=== PATIENT | male | born 1960 | race Caucasian/White ===

== ENCOUNTER → 2016-11-08 | Outpatient (CLI) | payer BC ==
[~2016-11-08] MED LIST: AMLO10TA2 PO; ATOR1TAB21 PO; LOSA100T PO
[2016-11-08 14:28] LABS: ALBUMIN 4.3 GM/DL (3.2-5.2); ALBUMIN/GLOBULIN RATIO 1.26 (1.00-1.93); ALKALINE PHOSPHATASE 79 U/L (45-117); ALT/SGPT 35 U/L (12-78); ANION GAP 7 MEQ/L (8-16); AST/SGOT 22 U/L (15-37); BILIRUBIN,TOTAL 0.5 MG/DL (0.2-1.0); BLOOD UREA NITROGEN 18 MG/DL (7-18); CALCIUM LEVEL 8.8 MG/DL (8.5-10.1); CARBON DIOXIDE LEVEL 31 MEQ/L (21-32); CHLORIDE LEVEL 100 MEQ/L (98-107); CHOLESTEROL LEVEL 182 MG/DL (<200); CREATININE FOR GFR 0.75 MG/DL (0.70-1.30); GLOMERULAR FILTRATION RATE > 60.0 (>56); GLUCOSE, FASTING 121 MG/DL (70-105); POTASSIUM SERUM 4.6 MEQ/L (3.5-5.1); SODIUM LEVEL 138 MEQ/L (136-145); TOTAL PROTEIN 7.7 GM/DL (6.4-8.2); TRIGLYCERIDES LEVEL 94 MG/DL (<150)
== END ==
LOC: M WUC 11:39
PROVIDERS: ATTEND Internal Medicine
DX: I10 Essential (primary) hypertension (principal); E78.00 Pure hypercholesterolemia, unspecified; R73.01 Impaired fasting glucose

== ENCOUNTER → 2016-12-20 | Outpatient (REF) | payer BC | LOC: M SFHCPLAZ 16:54 | PROVIDERS: ATTEND Internal Medicine | DX: I10 Essential (primary) hypertension (principal); E78.00 Pure hypercholesterolemia, unspecified; R73.01 Impaired fasting glucose ==

== ENCOUNTER → 2016-12-22 | Outpatient (CLI) | payer BC ==
--- NOTE | 2016-12-22 13:17 | REP ---
Low-dose lung screening CT: There are no comparison CT or plain film studies. Scanning is performed without IV contrast. Images are presented at lung windowing only. There are no comparison studies. There is a 3 mm right upper lobe lung nodule on image 34. There is a 4 mm right lower lobe lung nodule on image three. There is a 12 mm pleural-based density at the lateral margin of the major fissure on image 57, likely pleural tenting. There is a 3 mm nodule in the right lower lobe on image 72. There is a 6 mm left lower lobe nodule on image 88. There is another 6 mm left lower lobe nodule on image 88. There is a 9 mm nodule in the left lower lobe on image 88. There are no infiltrates or effusions. Impression: Multiple lung nodules as described. The largest nodule is a category 4A lesion. there is a 5 - 15% probability of malignancy. Recommendation is for follow-up low-dose CT in 3 months. Consider PET scan. Signed by Cristian Wright MD 12/22/2016 01:08 P
== END ==
LOC: M RAD 11:12
PROVIDERS: ATTEND Internal Medicine
DX: Z12.2 Encounter for screening for malignant neoplasm of respiratory organs (principal); Z87.891 Personal history of nicotine dependence; R91.8 Other nonspecific abnormal finding of lung field

== ENCOUNTER → 2017-03-27 | Outpatient (REF) | payer BC ==
[~2017-03-27] MED LIST changes: -LOSA100T PO; +LOSA100T8 PO
[2017-03-27 14:50] LABS: BLOOD UREA NITROGEN 15 MG/DL (7-18); CREATININE FOR GFR 0.67 MG/DL (0.70-1.30); GLOMERULAR FILTRATION RATE > 60.0 (>56)
== END ==
LOC: M LAB REF 14:05
PROVIDERS: ATTEND Internal Medicine Pulmonary Disease
DX: R91.8 Other nonspecific abnormal finding of lung field (principal)

== ENCOUNTER → 2017-04-03 | Outpatient (CLI) | payer BC ==
[~2017-04-03] MED LIST changes: +ISOVUE-370 76% 100ML VIAL (Q9967) As Ordered ONE
--- NOTE | 2017-04-04 03:21 | REP ---
Clinical: Follow-up pulmonary nodules. Technique: Axial contrast enhanced images from the thoracic inlet to the upper abdomen using 100 ml Isovue 370 intravenous contrast material with coronal and sagittal re-formations. Comparison: 12/22/2016. Findings: The bilateral lung real are well-aerated and relatively symmetric. Few scattered small noncalcified nodules remain essentially unchanged and measure up to approximately 5 mm. No significant consolidation, or mass lesion is appreciated. No pleural effusion/reaction or pneumothorax. Tracheobronchial tree is patent. No significant adenopathy. Mediastinum demonstrates atherosclerotic changes to the coronary arteries without cardiomegaly or pericardial effusion. The thoracic aorta is without aneurysm or dissection. The surrounding musculoskeletal structures are intact. Upper abdomen demonstrates normal bilateral adrenal glands. Impression: Small scattered noncalcified nodular densities up to approximately 5 mm remain relatively stable. No new, significant area of consolidation, nodule or mass lesion appreciated. Findings now likely represent category II lesions and are likely benign. Recommended management includes 12-month low-dose CT follow-up evaluation. Signed by Lance Billingsley MD 04/04/2017 03:12 A
== END ==
LOC: M RAD 17:21
PROVIDERS: ATTEND Internal Medicine Pulmonary Disease
DX: R91.8 Other nonspecific abnormal finding of lung field (principal)
CPT/HCPCS: 71260; Q9967

== ENCOUNTER → 2017-11-05 | Outpatient (REF) | payer BC ==
[2017-11-05 12:09] LABS: ESTIMATED AVERAGE GLUCOSE 140 MG/DL (60-110); HEMOGLOBIN A1c 6.5 %
[2017-11-05 12:10] LABS: ALBUMIN 3.9 GM/DL (3.2-5.2); ALKALINE PHOSPHATASE 77 U/L (45-117); ALT/SGPT 30 U/L (12-78); ANION GAP 6 MEQ/L (8-16); AST/SGOT 21 U/L (7-37); BILIRUBIN,TOTAL 0.4 MG/DL (0.2-1.0); BLOOD UREA NITROGEN 17 MG/DL (7-18); CALCIUM LEVEL 8.6 MG/DL (8.5-10.1); CARBON DIOXIDE LEVEL 29 MEQ/L (21-32); CHLORIDE LEVEL 106 MEQ/L (98-107); CHOLESTEROL LEVEL 129 MG/DL (<200); CHOLESTEROL RISK RATIO 3.583 (<5); CREATININE FOR GFR 0.72 MG/DL (0.70-1.30); GLOMERULAR FILTRATION RATE > 60.0 (>56); GLUCOSE, FASTING 131 MG/DL (70-100); HDL CHOLESTEROL 36 MG/DL (>40); MAGNESIUM LEVEL 2.1 MG/DL (1.8-2.4); NON-HDL-C 93 MG/DL; POTASSIUM SERUM 4.2 MEQ/L (3.5-5.1); SODIUM LEVEL 141 MEQ/L (136-145); TOTAL PROTEIN 6.9 GM/DL (6.4-8.2); TRIGLYCERIDES LEVEL 85 MG/DL (<150)
[2017-11-05 13:03] LABS: MALB URINE SIEMENS 6.2 MG/L; MAU/CREAT RATIO 5.4 MCG/MG (0.0-30.0)
== END ==
LOC: M SFHCPLAZ 09:04
DX: R73.01 Impaired fasting glucose (principal); I10 Essential (primary) hypertension; E78.00 Pure hypercholesterolemia, unspecified
CPT/HCPCS: 83735

== ENCOUNTER → 2018-07-31 | Outpatient (REF) | payer BC ==
[~2018-07-31] MED LIST changes: -AMLO10TA2 PO; +AMLO10TA5 PO; -ISOVUE-370 76% 100ML VIAL (Q9967) As Ordered ONE
[2018-07-31 10:14] LABS: HEMATOCRIT 42.3 % (42.0-52.0); HEMOGLOBIN 13.8 g/dl (13.5-17.5); MEAN CORPUSCULAR HEMOGLOBIN 31.3 pg (27.0-33.0); MEAN CORPUSCULAR HGB CONC 32.6 g/dl (32.0-36.5); MEAN CORPUSCULAR VOLUME 95.9 fl (80.0-96.0); PLATELET COUNT, AUTOMATED 250 10^3/uL (150-450); RED BLOOD COUNT 4.41 10^6/uL (4.30-6.10); WHITE BLOOD COUNT 6.9 10^3/uL (4.0-10.0)
[2018-07-31 10:24] LABS: ALBUMIN 4.1 GM/DL (3.2-5.2); ALT/SGPT 42 U/L (12-78); BILIRUBIN,TOTAL 0.4 MG/DL (0.2-1.0); BLOOD UREA NITROGEN 16 MG/DL (7-18); CALCIUM LEVEL 8.9 MG/DL (8.5-10.1); CARBON DIOXIDE LEVEL 30 MEQ/L (21-32); CHLORIDE LEVEL 100 MEQ/L (98-107); CHOLESTEROL LEVEL 160 MG/DL (<200); CREATININE FOR GFR 0.74 MG/DL (0.70-1.30); GLOMERULAR FILTRATION RATE > 60.0 (>56); GLUCOSE, FASTING 132 MG/DL (70-100); HDL CHOLESTEROL 40 MG/DL (>40); LDL CHOLESTEROL 100 MG/DL (<100); NON-HDL-C 120 MG/DL; POTASSIUM SERUM 4.3 MEQ/L (3.5-5.1); SODIUM LEVEL 136 MEQ/L (136-145); TOTAL PROTEIN 7.3 GM/DL (6.4-8.2); TRIGLYCERIDES LEVEL 99 MG/DL (<150)
[2018-07-31 10:46] LABS: HEMOGLOBIN A1c 6.7 %
== END ==
LOC: M SFHCPLAZ 08:13
PROVIDERS: ATTEND Internal Medicine
DX: M19.90 Unspecified osteoarthritis, unspecified site (principal); I10 Essential (primary) hypertension; E11.9 Type 2 diabetes mellitus without complications; E78.00 Pure hypercholesterolemia, unspecified

== ENCOUNTER → 2019-06-03 | Outpatient (REF) | payer BC ==
[2019-06-03 18:21] LABS: ALBUMIN 4.1 GM/DL (3.2-5.2); ALT/SGPT 33 U/L (12-78); BILIRUBIN,TOTAL 0.4 MG/DL (0.2-1.0); BLOOD UREA NITROGEN 12 MG/DL (7-18); CALCIUM LEVEL 9.3 MG/DL (8.5-10.1); CARBON DIOXIDE LEVEL 31 MEQ/L (21-32); CHLORIDE LEVEL 102 MEQ/L (98-107); CREATININE FOR GFR 0.72 MG/DL (0.70-1.30); GLOMERULAR FILTRATION RATE > 60.0 (>56); GLUCOSE, FASTING 98 MG/DL (70-100); SODIUM LEVEL 138 MEQ/L (136-145); TOTAL PROTEIN 7.3 GM/DL (6.4-8.2)
[2019-06-03 18:27] LABS: HEMOGLOBIN A1c 6.4 %
== END ==
LOC: M SFHCPLAZ 15:38
PROVIDERS: ATTEND Internal Medicine
DX: Z12.5 Encounter for screening for malignant neoplasm of prostate (principal); I10 Essential (primary) hypertension; E11.9 Type 2 diabetes mellitus without complications
CPT/HCPCS: 36415; 80053; 83036; 83735; G0103

== ENCOUNTER → 2019-06-23 | Outpatient (CLI) | payer BC ==
--- NOTE | 2019-06-23 09:51 | REP ---
CT CHEST WITHOUT IV CONTRAST: CT chest performed without IV contrast. Sagittal and coronal reconstruction images are performed. Comparison made with prior study of 04/03/2017. There are again noted stable subcentimeter nodular opacities bilaterally. These are all unchanged. No new nodules are seen. No consolidative infiltrate is seen. There is mild fibroatelectatic change in the right costophrenic angle. No axillary or mediastinal adenopathy is seen. The heart is normal in size. There is no pleural effusion. Tiny amount of pericardial fluid or thickening is seen unchanged as well. There is mild calcification of the thoracic aorta without aneurysm. There are degenerative changes of the spine. The visualized upper abdominal structures are grossly unremarkable. IMPRESSION: Stable subcentimeter nodular densities bilaterally are benign. No further followup is needed. No new nodules are seen. No acute infiltrate is seen. Electronically Signed by Cristian Zamora MD 06/23/2019 04:19 P
== END ==
LOC: M RAD 07:19
PROVIDERS: ATTEND Internal Medicine
DX: R93.89 Abnormal findings on diagnostic imaging of other specified body structures (principal)

== ENCOUNTER → 2020-06-08 | Outpatient (CLI) | payer BC ==
[~2020-06-08] MED LIST changes: -AMLO10TA5 PO; +AMLO1TAB25 PO
== END ==
LOC: M LABSMTC 13:58
PROVIDERS: ATTEND Family Medicine
DX: Z20.828 Contact with and (suspected) exposure to other viral communicable diseases (principal)

== ENCOUNTER 2021-11-02 15:51 | Emergency (ER) | payer BC ==
[~2021-11-02] VITALS: Ht 162.6 cm; Wt 89.4 kg
[2021-11-02 18:40] LABS: BASO % 0.7 % (0.0-1.0); EOS % 0.2 % (0.0-3.0); HEMATOCRIT 44.8 % (42.0-52.0); HEMOGLOBIN 15.2 g/dl (13.5-17.5); LYMPH # 0.9 10^3/uL (1.5-5.0); LYMPH % 15.3 % (24.0-44.0); MEAN CORPUSCULAR HEMOGLOBIN 32.3 pg (27.0-33.0); MEAN CORPUSCULAR HGB CONC 33.9 g/dl (32.0-36.5); MEAN CORPUSCULAR VOLUME 95.3 fl (80.0-96.0); MONO # 1.4 10^3/uL (0.0-0.8); MONO % 22.7 % (2.0-8.0); NEUTROPHILS # 3.7 10^3/uL (1.5-8.5); NEUTROPHILS % 60.4 % (36.0-66.0); PLATELET COUNT, AUTOMATED 219 10^3/uL (150-450); WHITE BLOOD COUNT 6.1 10^3/uL (4.0-10.0)
[2021-11-02] MEDS ORDERED: ISOVUE-370 76% 100ML VIAL As Ordered ONE (18:52)
[2021-11-02 18:54] LABS: INR 0.93; PROTHROMBIN TIME 12.9 SECONDS (12.7-14.5)
[2021-11-02 18:55] LABS: PARTIAL THROMBOPLASTIN TIME 33.4 SECONDS (25.9-37.0)
[2021-11-02 19:01] LABS: ALBUMIN 4.3 GM/DL (3.2-5.2); BILIRUBIN,DIRECT 0.1 MG/DL (0.0-0.2); BILIRUBIN,TOTAL 0.3 MG/DL (0.2-1.0); TOTAL PROTEIN 7.9 GM/DL (6.4-8.2)
[2021-11-02 19:09] LABS: CK-MB VALUE MASS 2.8 NG/ML (<3.6); MB/CK RELATIVE INDEX 1.3 (< OR =4)
[2021-11-02 20:21] VITALS: BP 138/94
[2021-11-02] MEDS ORDERED: SUCRALFATE 1 GM TAB PO ONE (20:30)
[2021-11-02] MEDS ORDERED: PANTOPRAZOLE 40MG TAB (PROTONIX) PO ONE (20:30)
[2021-11-02] MEDS ORDERED: CARA1TAB6 PO (20:31)
[2021-11-02] MEDS ORDERED: PROT1TAB2 PO (20:31)
== END 2021-11-02 20:42 | disposition home or self-care (01) ==
LOC: M ED 15:51
DX: K29.70 Gastritis, unspecified, without bleeding (principal); R01.1 Cardiac murmur, unspecified; I10 Essential (primary) hypertension; E78.5 Hyperlipidemia, unspecified; F10.10 Alcohol abuse, uncomplicated; F17.200 Nicotine dependence, unspecified, uncomplicated; Z79.899 Other long term (current) drug therapy
CPT/HCPCS: 36415; 71275; 74174; 80076; 82150; 82550; 82553; 83605; 83690; 84484; 85025; 85610; 85730; 93005; 93041; 99284; Q9967

== ENCOUNTER → 2022-01-06 | Outpatient (CLI) | payer BC ==
[~2022-01-06] MED LIST changes: +CARA1TAB6 PO; +PROT1TAB2 PO
== END ==
LOC: M WUC 13:06
PROVIDERS: ATTEND Family Medicine
DX: M25.551 Pain in right hip (principal); M54.41 Lumbago with sciatica, right side

== ENCOUNTER → 2023-07-04 | Outpatient (REF) | LOC: M PLAIMG 12:08 | PROVIDERS: ATTEND Internal Medicine | DX: R52 Pain, unspecified (principal) ==

== ENCOUNTER 2024-06-19 07:31 | Day surgery (SDC) | payer BC ==
[~2024-06-19] VITALS: Ht 162.6 cm; Wt 101.2 kg
[2024-06-19] MEDS ORDERED: propofoL 200 MG/20 ML VIAL As Ordered ONE (08:30)
[2024-06-19 09:19] VITALS: TEMP 99.2
[2024-06-19 09:40] VITALS: BP 138/81; O2SAT 94
== END 2024-06-19 09:54 | disposition home or self-care (01) ==
LOC: M OPP 07:31
PROVIDERS: ATTEND Surgery
DX: K57.31 Diverticulosis of large intestine without perforation or abscess with bleeding (principal); E11.9 Type 2 diabetes mellitus without complications; I10 Essential (primary) hypertension; E78.00 Pure hypercholesterolemia, unspecified; Z79.899 Other long term (current) drug therapy; Z87.891 Personal history of nicotine dependence; Z87.19 Personal history of other diseases of the digestive system

== ENCOUNTER → 2024-08-12 | Outpatient (CLI) | payer BC | LOC: M SLEEP HO 11:45 | PROVIDERS: ATTEND Physician Assistant | DX: G47.30 Sleep apnea, unspecified (principal) ==

== ENCOUNTER → 2024-09-04 | Outpatient (CLI) | payer BC | LOC: M SLEEP 20:00 | PROVIDERS: ATTEND Physician Assistant | DX: G47.33 Obstructive sleep apnea (adult) (pediatric) (principal) ==